=== PATIENT | female | born 1990 | race Caucasian/White ===

== ENCOUNTER 2018-02-22 03:41 | Emergency (ER) | payer MEDICAID ==
[2018-02-22] MEDS ORDERED: Lidocaine 1% 20 ML MDV INFILT ONE (03:42)
[2018-02-22] MEDS ORDERED: Ketorolac 30 MG/ML SDV IM ONE (04:07)
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
[2018-02-22] MEDS ORDERED: Bacitracin Oint 15 GM Tube TOP ONE (04:39)
[2018-02-22] MEDS ORDERED: Acetaminophen 500 MG Tab PO ONE (04:50)
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
== END 2018-02-22 05:20 | disposition home or self-care (01) ==
LOC: FB.ED 03:41
DX: S06.0X0A Concussion without loss of consciousness, initial encounter (principal); S01.311A Laceration without foreign body of right ear, initial encounter; Y04.8XXA Assault by other bodily force, initial encounter
CPT/HCPCS: 12011; 72170; 73140-F5; 96372; 99283; 99284; A9270-GY; J1885

== ENCOUNTER 2018-02-24 07:20 | Emergency (ER) | payer MEDICAID ==
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
== END 2018-02-24 08:35 | disposition home or self-care (01) ==
LOC: FB.ED 07:20
DX: M54.5 Low back pain (principal); F17.210 Nicotine dependence, cigarettes, uncomplicated; Z91.018 Allergy to other foods
CPT/HCPCS: 96372; 99283; J2360

== ENCOUNTER 2018-04-07 17:13 | Emergency (ER) | payer SELFPAY ==
[2018-04-07] MEDS ORDERED: hydrOXYzine HCl 50 MG/ML SDV IM ONE (19:30)
[2018-04-07] MEDS ORDERED: Ketorolac 60 MG/2 ML SDV IM ONE (19:30)
[2018-04-07] MEDS ORDERED: Sulfamethoxazole/Trimethoprim 800-160 MG Tab PO ONE (20:21)
--- NOTE | 2018-04-07 20:25 | EDM.PDOC ---
ED HPI GENERAL MEDICAL PROBLEM - General Chief Complaint: Lower Extremity Injury/Pain Stated Complaint: LEFT PELVIC PAIN Time Seen by Provider: 04/07/18 19:30 Source of Information: Reports: Patient - History of Present Illness INITIAL COMMENTS - FREE TEXT/NARRATIVE: Flory is complaining of left lower quadrant abdominal pain. She describes sharp pain,sudden onset for few several days. Denies any urinary symptoms nausea or vomiting. She's had tubal ligation but would like blood test for . left lower quadrant abdomen Pain Score (Numeric/FACES): 10 - Related Data Allergies Allergy/AdvReac Type Severity Reaction Status Date / Time hazelnuts Allergy Severe Hives Uncoded 04/07/18 19:25 Home Meds: Home Meds Orphenadrine [Norflex] 100 mg PO QID PRN #40 tab.er 02/24/18 [Rx] traMADol [Ultram] 50 mg PO Q4H PRN #30 tab 02/24/18 [Rx] Past Medical History Respiratory History: Reports: Asthma Gastrointestinal History: Reports: Other (See Below) Other Gastrointestinal History: Hx liver enlargement. Genitourinary History: Reports: Renal Calculus Psychiatric History: Reports: Anxiety, Depression Other Psychiatric History: not taking any meds for her anxiety and depression. Social & Family History - Family History Family Medical History: Noncontributory - Tobacco Use Smoking Status *Q: Current Every Day Smoker Years of Tobacco use: 13 Packs/Tins Daily: 0.5 - Caffeine Use Caffeine Use: Reports: Coffee, Energy Drinks, Soda Caffeine Use Comment: One cup per day. - Recreational Drug Use Other Recreational Drug Type: denies but is positive for marijuana. Review of Systems - Review of Systems Review Of Systems: ROS reveals no pertinent complaints other than HPI. ED EXAM, GENERAL - Physical Exam Exam: See Below Free Text/Narrative:: Patient was mostly sleeping. Had to wake up twice to obtain history and exam. Exam revealed some inordinate tenderness on the left lower quadrant ,with no masses were palpable. Exam Limited By: No Limitations General Appearance: Alert Course - Vital Signs Last Recorded V/S: Last Vital Signs Temp 98.2 F 04/07/18 17:15 Pulse 77 04/07/18 17:15 Resp 17 04/07/18 17:15 BP 117/82 04/07/18 17:15 Pulse Ox 100 04/07/18 17:15 - Orders/Labs/Meds Orders: Active Orders 24 hr Category Date Time Status CULTURE URINE [RM] Stat Lab 04/07/18 18:07 Received Labs: Laboratory Tests 04/07/18 04/07/18 04/07/18 Range/Units 18:07 18:07 18:07 WBC (4.5-12.0) X10-3/uL RBC (3.23-5.20) x10(6)uL Hgb (11.5-15.5) g/dL Hct (30.0-51.3) % MCV (80-96) fL MCH (27.7-33.6) pg MCHC (32.2-35.4) g/dL RDW (11.5-15.5) % Plt Count (125-369) X10(3)uL MPV (7.4-10.4) fL Neut % (Auto) (46-82) % Lymph % (Auto) (13-37) % Mower % (Auto) (4-12) % Eos % (Auto) (1.0-5.0) % Baso % (Auto) (0-2) % Neut # (Auto) (1.6-8.3) # Lymph # (Auto) (0.6-5.0) # Mower # (Auto) (0.0-1.3) # Eos # (Auto) (0.0-0.8) # Baso # (Auto) (0.0-0.2) # Sodium (135-145) mmol/L Potassium (3.5-5.3) mmol/L Chloride (100-110) mmol/L Carbon Dioxide (21-32) mmol/L BUN (7-18) mg/dL Creatinine (0.55-1.02) mg/dL Est Cr Clr Drug Dosing mL/min Estimated GFR (MDRD) (>60) BUN/Creatinine Ratio (9-20) Glucose (80-116) mg/dL Calcium (8.6-10.2) mg/dL HCG, Quant (<5) mIU/mL Urine Color Yellow (YELLOW) Urine Appearance Slightly cloudy (CLEAR) Urine pH 6.5 (5.0-6.5) Ur Specific [place] 1.020 (1.010-1.025) Urine Protein Trace (NEGATIVE) mg/dL Urine Glucose (UA) Normal (NEGATIVE) mg/dL Urine Ketones Negative (NEGATIVE) mg/dL Urine Occult Blood Large H (NEGATIVE) Urine Nitrite Negative (NEGATIVE) Urine Bilirubin Negative (NEGATIVE) Urine Urobilinogen Normal (NEGATIVE) mg/dL Ur Leukocyte Esterase Moderate H (NEGATIVE) Urine RBC 10-20 H (0) Urine WBC 5-10 (0) Ur Squamous Epith Cells Occasional (NS,R,O) Urine Bacteria Moderate H (NS) Urine HCG, Qual Negative (NEGATIVE) Urine Opiates Screen Negative (NEGATIVE) Ur Oxycodone Screen Negative (NEGATIVE) Ur Propoxyphene Screen Negative (NEGATIVE) Ur Barbituates Screen Negative (NEGATIVE) Ur Tricyclics Screen Negative (NEGATIVE) Ur Phencyclidine Scrn Negative (NEGATIVE) Ur Amphetamine Screen Negative (NEGATIVE) Urine MDMA Screen Negative (NEGATIVE) U Benzodiazepines Scrn Negative (NEGATIVE) U Cocaine Metab Screen Negative (NEGATIVE) U Marijuana (THC) Screen Positive H (NEGATIVE) 04/07/18 04/07/18 04/07/18 Range/Units 19:40 19:40 19:40 WBC 10.6 (4.5-12.0) X10-3/uL RBC 4.80 (3.23-5.20) x10(6)uL Hgb 14.9 (11.5-15.5) g/dL Hct 43.6 (30.0-51.3) % MCV 90.8 (80-96) fL MCH 31.1 (27.7-33.6) pg MCHC 34.3 (32.2-35.4) g/dL RDW 11.8 (11.5-15.5) % Plt Count 329 (125-369) X10(3)uL MPV 8.8 (7.4-10.4) fL Neut % (Auto) 80.2 (46-82) % Lymph % (Auto) 16.1 (13-37) % Mower % (Auto) 2.9 L (4-12) % Eos % (Auto) 0 L (1.0-5.0) % Baso % (Auto) 1 (0-2) % Neut # (Auto) 8.5 H (1.6-8.3) # Lymph # (Auto) 1.7 (0.6-5.0) # Mower # (Auto) 0.3 (0.0-1.3) # Eos # (Auto) 0.0 (0.0-0.8) # Baso # (Auto) 0.1 (0.0-0.2) # Sodium 141 (135-145) mmol/L Potassium 4.2 (3.5-5.3) mmol/L Chloride 103 (100-110) mmol/L Carbon Dioxide 28 (21-32) mmol/L BUN 11 (7-18) mg/dL Creatinine 0.7 (0.55-1.02) mg/dL Est Cr Clr Drug Dosing 96.32 mL/min Estimated GFR (MDRD) > 60 (>60) BUN/Creatinine Ratio 15.7 (9-20) Glucose 105 (80-116) mg/dL Calcium 9.4 (8.6-10.2) mg/dL HCG, Quant < 1 L (<5) mIU/mL Urine Color (YELLOW) Urine Appearance (CLEAR) Urine pH (5.0-6.5) Ur Specific [place] (1.010-1.025) Urine Protein (NEGATIVE) mg/dL Urine Glucose (UA) (NEGATIVE) mg/dL Urine Ketones (NEGATIVE) mg/dL Urine Occult Blood (NEGATIVE) Urine Nitrite (NEGATIVE) Urine Bilirubin (NEGATIVE) Urine Urobilinogen (NEGATIVE) mg/dL Ur Leukocyte Esterase (NEGATIVE) Urine RBC (0) Urine WBC (0) Ur Squamous Epith Cells (NS,R,O) Urine Bacteria (NS) Urine HCG, Qual (NEGATIVE) Urine Opiates Screen (NEGATIVE) Ur Oxycodone Screen (NEGATIVE) Ur Propoxyphene Screen (NEGATIVE) Ur Barbituates Screen (NEGATIVE) Ur Tricyclics Screen (NEGATIVE) Ur Phencyclidine Scrn (NEGATIVE) Ur Amphetamine Screen (NEGATIVE) Urine MDMA Screen (NEGATIVE) U Benzodiazepines Scrn (NEGATIVE) U Cocaine Metab Screen (NEGATIVE) U Marijuana (THC) Screen (NEGATIVE) Meds: Medications Discontinued Medications Generic Name Dose Route Start Last Admin Trade Name Freq PRN Reason Stop Dose Admin Hydroxyzine HCl 50 mg 04/07/18 19:30 04/07/18 19:39 Vistaril IM 04/07/18 19:31 50 mg ONETIME ONE Administration Ketorolac Tromethamine 60 mg 04/07/18 19:30 04/07/18 19:39 Toradol IM 04/07/18 19:31 60 mg ONETIME ONE Administration Departure - Departure Time of Disposition: 20:23 Disposition: Home, Self-Care 01 Clinical Impression: UTI (urinary tract infection) - Discharge Information Referrals: PCP,Not In Area [Primary Care Provider] - - Problem List & Annotations (1) UTI (urinary tract infection) SNOMED Code(s): 01537099 Code(s): N39.0 - URINARY TRACT INFECTION, SITE NOT SPECIFIED Status: Acute Current Visit: Yes Qualifiers: Urinary tract infection type: acute cystitis - Problem List Review Problem List Initiated/Reviewed/Updated: Yes - Assessment/Plan Plan: HCG urine was negative. It did show a THC,and some white cells,meeting criteria for culture. CBC was unremarkable. I behavior did not conform with someone with such pain. I gave her ketorolac and Vistaril, and discharged home on Bactrim DS one tablet 3 times a day with follow-up with PCP on Monday.
== END 2018-04-07 20:31 | disposition home or self-care (01) ==
LOC: FB.ED 17:13
DX: N39.0 Urinary tract infection, site not specified (principal); F17.210 Nicotine dependence, cigarettes, uncomplicated; Z91.018 Allergy to other foods
CPT/HCPCS: 36415; 80048; 80305; 81001; 81025; 84702; 85025; 87086; 96372; 99284; J1885; J3410; 99283; A9270-GY